=== PATIENT | male | born 1980 | race Caucasian/White ===

== ENCOUNTER 2018-01-05 09:21 | Day surgery (SDC) | payer MEDICARE, OTHER ==
[2017-12-29 15:57] VITALS: BMI 29.4
[~2018-01-05 09:21] MED LIST: DEXAMETHASONE SOD PHOSPHATE 10 MG/ML 1 ML VIAL IV ONE; HEPARIN SODIUM,PORCINE 5,000 UNIT/ML 1 ML VIAL SQ ONE; LACTATED RINGERS 1,000 ML IV SCH; MIDAZOLAM 2 MG/2 ML VIAL IV PRN; ONDANSETRON 4 MG/2 ML VIAL IVP ONE; Pre Op ABX Message 1 EACH MISC MISCELLANE ONE; SCOPOLAMINE 1.5MG/72HR PATCH TRANSDERM ONE; fentaNYL (PF) 50 MCG/ML 2 ML AMP IV PRN
[2018-01-05 09:50] VITALS: RESP 16; TEMP 97.8
[2018-01-05] MEDS ORDERED: KETAMINE 10 MG/ML 20 ML VIAL ONE (10:31)
[2018-01-05] MEDS ORDERED: PROPOFOL 10 MG/ML 20 ML VIAL IV ONE (10:31)
[2018-01-05] MEDS ORDERED: fentaNYL (PF) 50 MCG/ML 2 ML AMP ONE (10:31)
[2018-01-05] MEDS ORDERED: MIDAZOLAM 2 MG/2 ML VIAL ONE (10:31)
[2018-01-05] MEDS ORDERED: BUPIVACAIN-EPI 0.5%-1:200,000 30 ML VIAL SQ ONE ×2 (10:48)
[2018-01-05] MEDS ORDERED: NALOXONE 0.4 MG/ML 1 ML VIAL IV PRN (11:09)
--- NOTE | 2018-01-05 11:11 | P.OP ---
Date of Procedure: 01/05/18 Procedure(s) Performed: PREOPERATIVE DIAGNOSIS: Posterior neck mass POSTOPERATIVE DIAGNOSIS: Same PROCEDURE: Excision lipomatous mass posterior neck 5 x 12 cm, intermediate closure 3 cm SURGEON: Carrie EBL: 5 mL ANESTHESIA: Sedation COMPLICATIONS: None OPERATIVE PROCEDURE: Patient placed in the left decubitus position. The posterior neck was prepped and draped in usual sterile fashion. The skin was localized with Marcaine. A horizontal incision was made overlying the palpable mass. The subcutaneous tissues were dissected using electrocautery. The lipomatous mass was easily identified. This was carefully excised. This had multiple lobules extending in various directions. Overall size 5 x 12 cm. Subcu tissues were closed using 3-0 Vicryl sutures. The skin was closed using a 4-0 Monocryl stitch. Intermediate closure length 3 cm. Dermabond used on the skin. DISPOSITION: Stable to recovery room
[2018-01-05 11:42] VITALS: BP 132/68; PULSE 65
== END 2018-01-05 11:44 | disposition home or self-care (01) ==
LOC: OR 09:21
PROVIDERS: ATTEND Surgery
DX: R22.1 Localized swelling, mass and lump, neck (principal); J30.81 Allergic rhinitis due to animal (cat) (dog) hair and dander; Z91.018 Allergy to other foods; F17.200 Nicotine dependence, unspecified, uncomplicated; Z79.1 Long term (current) use of non-steroidal anti-inflammatories (NSAID); Z79.899 Other long term (current) drug therapy
CPT/HCPCS: 88304; 21552; J2250; J1644; J1100; J2405; J3010; J2704

== ENCOUNTER 2020-03-29 08:37 | Emergency (ER) | payer OTHER ==
[2020-03-29 08:45] VITALS: RESP 18
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
--- NOTE | 2020-03-29 10:00 | US ---
EXAMINATION TYPE: US venous doppler duplex LE LT DATE OF EXAM: 03/29/2020 9:24 AM COMPARISON: NONE CLINICAL HISTORY: 39-year-old male pain. Pt states area of redness and lump left medial calf/ No know n history of DVT, not on blood thinners SIDE PERFORMED: Left TECHNIQUE: The lower extremity deep venous system is examined utilizing real time linear array sonog abundio with graded compression, doppler sonography and color-flow sonography. FINDINGS: VESSELS IMAGED: Common Femoral Vein Deep Femoral Vein Greater Saphenous Vein * Femoral Vein Popliteal Vein Small Saphenous Vein * Proximal Calf Veins (* superficial vessels) Left Leg: Negative for DVT. Left Medial calf in area of redness and lump scanned- No abnormality cou ld be appreciated, left GSV at mid calf visualized and patent IMPRESSION: 1. No evidence for DVT within the left lower extremity imaged from the groin to the upper calf. 2. Additional targeted scanning at the site of redness and swelling along the medial calf shows no di screte sonographic abnormality.
[2020-03-29 10:29] VITALS: BP 142/92; PULSE 98; TEMP 98.7
== END 2020-03-29 10:29 | disposition home or self-care (01) ==
LOC: EC 08:37
DX: L03.116 Cellulitis of left lower limb (principal); F17.200 Nicotine dependence, unspecified, uncomplicated
CPT/HCPCS: 99283

== ENCOUNTER 2023-03-28 19:00 | Emergency (ER) | payer OTHER ==
[2023-03-28 19:51] VITALS: BP 151/83; PULSE 94; RESP 18; TEMP 98
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
[2023-03-28 20:25] LABS: Appearance,Urine Clear (Clear); Bilirubin,Urine Negative (Negative); Blood,Urine Negative (Negative); Color,Urine Yellow; Glucose,Urine (UA) Negative (Negative); Ketones,Urine Negative (Negative); Leukocyte Esterase,Urine Negative (Negative); Nitrite,Urine Negative (Negative); PH, Urine 6.5 (5.0-8.0); Protein,Urine Negative (Negative); Specific Gravity,Urine 1.023 (1.001-1.035); Urobilinogen,Urine <2.0 mg/dL (<2.0)
--- NOTE | 2023-03-28 20:33 | US ---
EXAMINATION TYPE: US scrotum with doppler. Grayscale and color Doppler Duplex imaging performed of t he scrotum. DATE OF EXAM: 03/28/2023 COMPARISON: NONE CLINICAL INDICATION: Male, 42 years old with history of pain; pain x days (pt unsure exact date) in r ight testicle. Pt states he went to urgent care and they told him he probably has a hydrocele on lef t side. EXAM MEASUREMENTS: TESTICLES: Right Testicle: 4.9 x 3.8 x 2.7 cm Left Testicle: 4.9 x 3.4 x 3.0 cm EPIDIDYMIS HEAD: Right Epididymis: 0.8 cm Left Epididymis: 1.3 cm Doppler performed to assess for testicular vascularity; good bilateral color flow and waveforms are s een. There is no evidence of testicular torsion. Presence of hydroceles: Small on right, large on left Presence of varicoceles: No IMPRESSION: Bilateral hydroceles. No evidence for intratesticular mass. Appropriate arterial and veno us systems spectral waveforms to the testes.
== END 2023-03-28 21:54 | disposition home or self-care (01) ==
LOC: EC 19:00
DX: N43.3 Hydrocele, unspecified (principal); F17.200 Nicotine dependence, unspecified, uncomplicated
CPT/HCPCS: 76870; 81003; 93975; 99284